=== PATIENT | female | born 1970 | race Caucasian/White ===

== ENCOUNTER → 2017-11-06 14:15 | Outpatient (CLI) | payer BC | END | disposition home or self-care (01) | LOC: D.CT 14:15 | DX: R10.32 Left lower quadrant pain (principal) ==

== ENCOUNTER 2017-12-07 06:46 | Day surgery (SDC) | payer BC ==
[2017-12-06 10:26] LABS: BASOPHILS 0.3 % (0-2); EOSINOPHILS 1.2 % (0-7); HEMATOCRIT 39.9 % (36.0-48.0); HEMOGLOBIN 13.1 g/dL (12-16); IMMATURE GRANULOCYTES 0.1 % (0-5); LYMPHOCYTES 23.2 % (15-50); MCH 33.1 pg (26.0-34.0); MCHC 32.8 g/dL (31.0-37.0); MCV 100.8 fL (80.0-100.0); MEAN PLATELET VOLUME 9.9 fL (7.4-10.4); MONOCYTES 6.7 % (2-11); NEUTROPHILS 68.5 % (40-80); PLATELET COUNT 342 10x3/uL (130-400); RBC 3.96 10x6/uL (4.00-5.40); RDW 12.7 % (11.5-14.5); WBC 8.9 10x3/uL (4.8-10.8)
[2017-12-06 10:52] LABS: ANION GAP 10.3 mmol/L (8-16); CALCIUM 10.3 mg/dL (8.5-10.1); CARBON DIOXIDE 30.7 mmol/L (21.0-32.0); CREATININE - SERUM 1.1 mg/dL (0.6-1.3)
[~2017-12-07] VITALS: Ht 165.1 cm; Wt 110.2 kg
--- NOTE | ~2017-12-07 | OP ---
PATIENT NAME: ELIZABETH WARREN MEDICAL RECORD: [id number] :74 LOCATION:D.OPS ADMISSION DATE: SURGEON: CATRACHO PRUITT MD DATE OF OPERATION: 12/07/2017 PREOPERATIVE DIAGNOSES: 1. Chronic cholecystitis. 2. GERD. 3. Hypertension. 4. Tobacco dependence syndrome. POSTOPERATIVE DIAGNOSES: 1. Chronic cholecystitis. 2. GERD. 3. Hypertension. 4. Tobacco dependence syndrome. PROCEDURE: Laparoscopic cholecystectomy. SURGEON: Catracho Pruitt MD REPORT OF PROCEDURE: The patient's abdomen was prepped and draped in sterile fashion. A cutdown was made on the superior aspect of the umbilicus. Vicryls #0 were placed on the fascia bilaterally and the fascia was incised with a #15 blade. I then bluntly entered the peritoneal cavity and placed a 12-mm Arabella port. Under direct visualization, a 5-mm trocar was placed in the epigastrium and two more 5-mm trocars were placed in the right subcostal region. The gallbladder was grasped and elevated. The cystic artery and cystic duct were dissected free and these were clipped proximally and distally and ligated in standard fashion. The gallbladder was taken off the liver bed using electrocautery and placed into the right upper quadrant. Any bleeding from the liver bed was then treated with electrocautery. The ports and insufflation were then removed and the gallbladder was taken out through the umbilicus. The umbilical fascia was closed with interrupted #0 Vicryls times 3. The wounds were irrigated out with normal saline and infused with 10 mL of 0.25% Marcaine with epinephrine. The skin incisions were all closed with subcutaneous 5-0 Monocryl and dressed appropriately. COMPLICATIONS: None. CONDITION: Stable. ANESTHESIA: General endotracheal and local. BLOOD LOSS: Minimal. TRANSINT:[id number] Voice Confirmation ID: [id number] DOCUMENT ID: [id number] OPERATIVE REPORT [id number] KELVINCHIELIZABETHCATRACHO SOSA MD at 1413 CC: JOSHUA DIAZ MD [id number] DICTATION DATE: 12/07/17 0937 SITE PROMOTION AGENT: 12/07/[address] [facility] 12/07/17 [place] [address]
[~2017-12-07 06:46] MED LIST: ADIPEX-P37.5 M1 PO; CYCLOBENZAPRINE10 MG PO; DUEXIS 800-26.1 EACH PO; LISINOPRIL10 MG PO; MELATONIN 3 MG1 TAB PO; TOPROL XL50 MG PO; UNISOM SLEEP AI25 MG PO
[2017-12-07 07:17] VITALS: BP 95/55; Ht 165.1 cm; Wt 110.2 kg
[2017-12-07] MEDS ORDERED: HYDROCODONE-APA1 TAB PO (09:40)
== END 2017-12-07 13:00 | disposition home or self-care (01) ==
LOC: D.OPS 06:46
PROVIDERS: Surgery
DX: K81.1 Chronic cholecystitis (principal); K21.9 Gastro-esophageal reflux disease without esophagitis; I10 Essential (primary) hypertension; F17.200 Nicotine dependence, unspecified, uncomplicated; Z01.812 Encounter for preprocedural laboratory examination

== ENCOUNTER 2017-12-09 14:12 | Emergency (ER) | payer BC ==
[2017-12-07 07:17] VITALS: BMI 40.5
[~2017-12-09 14:12] MED LIST changes: +HYDROCODONE-APA1 TAB PO
[2017-12-09 16:21] LABS: COLOR STRAW (YELLOW)
[2017-12-09 16:22] LABS: APPEARANCE CLEAR (CLEAR); BILIRUBIN NEGATIVE (NEGATIVE); GLUCOSE NEGATIVE (NEGATIVE); KETONE NEGATIVE (NEGATIVE); NITRITE NEGATIVE (NEGATIVE); PH 7.5 (5.0-6.0); PROTEIN NEGATIVE (NEGATIVE); SPECIFIC GRAVITY 1.005 (1.005-1.020); UROBILINOGEN NORMAL (NORMAL)
[2017-12-09 16:47] LABS: BASOPHILS 0.3 % (0-2); EOSINOPHILS 0.5 % (0-7); HEMATOCRIT 36.9 % (36.0-48.0); HEMOGLOBIN 12.2 g/dL (12-16); IMMATURE GRANULOCYTES 0.3 % (0-5); LYMPHOCYTES 30.1 % (15-50); MCH 32.6 pg (26.0-34.0); MCHC 33.1 g/dL (31.0-37.0); MCV 98.7 fL (80.0-100.0); MEAN PLATELET VOLUME 9.9 fL (7.4-10.4); MONOCYTES 7.7 % (2-11); NEUTROPHILS 61.1 % (40-80); PLATELET COUNT 303 10x3/uL (130-400); RBC 3.74 10x6/uL (4.00-5.40); RDW 12.9 % (11.5-14.5); WBC 10.8 10x3/uL (4.8-10.8)
== END 2017-12-09 17:00 | disposition home or self-care (01) ==
LOC: D.ER 14:12
PROVIDERS: Physician Assistant Medical
DX: K59.00 Constipation, unspecified (principal); I10 Essential (primary) hypertension; T88.59XA Other complications of anesthesia, initial encounter; F17.200 Nicotine dependence, unspecified, uncomplicated

== ENCOUNTER → 2018-05-15 12:46 | Outpatient (CLI) | payer BC ==
[2017-12-07 07:17] VITALS: BMI 40.5
== END | disposition home or self-care (01) ==
LOC: D.MRI 12:46
DX: G43.909 Migraine, unspecified, not intractable, without status migrainosus (principal)